=== PATIENT | female | born 1975 | race Caucasian/White ===

== ENCOUNTER 2021-06-18 06:10 | Inpatient (IN) | payer OTHER, SELFPAY ==
[~2021-06-18] VITALS: Ht 152.4 cm; Wt 89.8 kg
[2021-06-18] MEDS ORDERED: PROPOFOL 200 MG/20 ML VIAL IV ONE (08:27)
[2021-06-18] MEDS ORDERED: HYDROmorphone PFS 2 MG/ML SYR ONE (08:27)
[2021-06-18] MEDS ORDERED: MIDAZOLAM 2 MG/2 ML VIAL ONE (08:27)
[2021-06-18] MEDS ORDERED: ROCURONIUM 50 MG/5 ML VIAL IV ONE ×2 (08:28→10:51)
[2021-06-18] MEDS ORDERED: LABETALOL 100 MG/20 ML VIAL ONE (08:33)
[2021-06-18 09:47] LABS: APPEARANCE,URINE CLEAR (CLEAR); BILIRUBIN,URINE NEGATIVE (NEGATIVE); BLOOD, URINE NEGATIVE (NEGATIVE); COLOR,URINE YELLOW (YELLOW); LEUKOCYTE ESTERASE ,URINE NEGATIVE (NEGATIVE); NITRITE, URINE NEGATIVE (NEGATIVE); UGLUCOSE NEGATIVE (NEGATIVE)
--- NOTE | 2021-06-18 10:37 | NUR ---
PATIENT HAS BEEN SCREENED AND CATEGORIZED LOW NUTRITION RISK. PATIENT WILL BE SEEN WITHIN 7 DAYS OF ADMISSION. 06/24/[address]
[2021-06-18] MEDS ORDERED: KETOROLAC 30 MG/ML VIAL IVP PRN (10:40)
[2021-06-18] MEDS ORDERED: ACETAMINOPHEN 325 MG TAB PO PRN (10:40)
[2021-06-18] MEDS ORDERED: ONDANSETRON 4 MG/2 ML VIAL IVP PRN ×2 (10:40→12:15)
[2021-06-18] MEDS ORDERED: diphenhydrAMINE 50 MG/ML VIAL IVP PRN (10:40)
[2021-06-18] MEDS ORDERED: diphenhydrAMINE 50 MG/ML VIAL ONE (10:50)
[2021-06-18] MEDS ORDERED: GLYCOPYRROLATE 0.2 MG/ML VIAL ONE ×2 (10:50)
[2021-06-18] MEDS ORDERED: NEOSTIGMINE 1:1000 10 MG/10 ML VIAL ONE (10:50)
[2021-06-18] MEDS ORDERED: KETOROLAC 30 MG/ML VIAL ONE (10:50)
[2021-06-18] MEDS ORDERED: METOCLOPRAMIDE 10 MG/2 ML INJ VIAL ONE (10:50)
[2021-06-18] MEDS ORDERED: ALBUTEROL HFA MDI 90 MCG/ACTUATION 8 GM INH ONE (10:50)
[2021-06-18] MEDS ORDERED: ONDANSETRON 4 MG/2 ML VIAL ONE (10:50)
[2021-06-18] MEDS ORDERED: DEXAMETHASONE 4 MG/ML VIAL ONE ×2 (10:51)
[2021-06-18] MEDS ORDERED: ePHEDrine 50 MG/ML VIAL ONE (10:51)
[2021-06-18] MEDS ORDERED: HYDROmorphone 1 MG/ML AMP IVP PRN (12:15)
[2021-06-18] MEDS ORDERED: MEPERIDINE 25 MG/ML SYR IVP PRN (12:15)
[2021-06-18 13:20] VITALS: BP 101/75
[2021-06-18 16:00] VITALS: BP 123/74
[2021-06-18] MEDS: LACTATED RINGERS 1,000 ML IV SCH (18:44)
--- NOTE | 2021-06-18 19:55 | NUR ---
RECEIVED REPORT FROM MORNING SHIFT RN. PATIENT RESTING COMFORTABLY ON BED, DROWSY BUT AROUSABLE. IV FLUIDS ONGOING AT DESIRED RATE. WOUND CDI. VS STABLE. ON CONTINUOS PULSE OXIMETRY WITH O2SAT OF 91%, ON 02 OF 2L/NC.WILL CONTINUE TO MONITOR PATIENT.
[2021-06-18 20:00] VITALS: BP 128/74
[2021-06-19] VITALS: BP 102/66
[2021-06-19] MEDS: oxyCODONE/APAP 5/325 MG 1 TAB TAB PO PRN (01:04)
[2021-06-19] MEDS: LACTATED RINGERS 1,000 ML IV SCH ×3 (03:11→16:17)
[2021-06-19 04:00] VITALS: BP 123/62
--- NOTE | 2021-06-19 06:58 | NUR ---
WARREN CATHETER REMOVED ORDERED. PATIENT TOLERATED WELL. WILL ENDORSE TO MORNING SHIFT RN.
[2021-06-19 07:20] LABS: BASOPHILS % (AUTO) 0.1 % (0.0-2.0); HEMATOCRIT 33.9 % (36-48); HEMOGLOBIN 11.1 g/dL (12.0-16.0); LYMPHOCYTES # (AUTO) 1.4 K/uL (2.5-16.5); LYMPHOCYTES % (AUTO) 13.6 % (20.5-51.1); MEAN CORPUSCULAR HEMOGLOBIN 25 pg (27-31); MEAN CORPUSCULAR HGB CONC 33 g/dL (33-37); MEAN CORPUSCULAR VOLUME 75.2 fL (80-94); MONOCYTES # (AUTO) 0.6 K/uL (0.8-1.0); MONOCYTES % (AUTO) 5.5 % (1.7-9.3); NEUTROPHILS # (AUTO) 8.3 K/uL (1.8-7.7); NEUTROPHILS % (AUTO) 80.8 % (42.2-75.2); PLATELET COUNT (AUTO) 335 K/uL (140-450); RED BLOOD CELL COUNT(AUTO) 4.51 MIL/uL (4.20-5.40); RED CELL DISTRIBUTION WIDTH 16.4 % (11.6-13.7); WHITE BLOOD COUNT (AUTO) 10.3 K/uL (4.8-10.8)
--- NOTE | 2021-06-19 07:40 | NUR ---
RECEIVED BEDSIDE REPORT FROM MAINTENANCE MGR NURSE FOR CONTINUITY OF CARE. PT BREATHING IS EVEN AND UNLABORED. NO SIGNS OF DISTRESS NOTED.PT IV IS INTACT. ON 2L NC. PT IS STABLE.
[2021-06-19 08:00] VITALS: BP 118/72
--- NOTE | 2021-06-19 12:00 | NUR ---
PT BREATHING IS EVEN AND UNLABORED. NO SIGNS OF DISTRESS NOTED.PT IV IS INTACT. PT NOW ON 1L OF 02 NC.PT IS STABLE.
[2021-06-19 16:00] VITALS: BP 120/62
--- NOTE | 2021-06-19 19:50 | NUR ---
ENDORSED PT TO LUMBER CHAIN OFFBEARER NURSE FOR CONTINUITY OF CARE.
[2021-06-19 20:00] VITALS: BP 131/79
--- NOTE | 2021-06-19 22:29 | NUR ---
PATIENT DAUGHTER HEIDI CALLED EARLIER BUT I WAS BUSY WITH ANOTHER PATIENT. I ASKED THE MT JESUS TO TAKE THE MESSAGE AND TAKE THE PATIENTS DAUGHTER PHONE NUMBER SO I CAN CALL HER BACK. CALLED THE PATIENT DAUGHTER HEIDI BUT NO ANSWER. LEFT HER A MESSAGE AND PROVIDED HER OUR PHONE NUMBER TO CALL ME BACK.
[2021-06-20] MEDS: LACTATED RINGERS 1,000 ML IV SCH (00:12)
[2021-06-20] MEDS: oxyCODONE/APAP 5/325 MG 1 TAB TAB PO PRN (03:40)
[2021-06-20 04:00] VITALS: BP 104/62
[2021-06-20 08:00] VITALS: BP 118/83
--- NOTE | 2021-06-20 08:00 | NUR ---
RECEIVED PT FROM NIGHTSHIFT. PT A/O X4. NO SOB OR RESPIRATORY DISTRESS. RR EVEN & UNLABORED. LOWER ABDOMEN SURGICAL SITE WITH NO S/S OF INFECTION. ASSISTED PT TO AND FROM RESTROOM. OBSERVED WITH STEADY GAIT. NEEDS ALL MET AT THIS TIME. SAFE PRECAUTIONS IN PLACE. WILL MONITOR CLOSELY.
[2021-06-20 08:30] VITALS: BP 131/79
[2021-06-20 11:55] VITALS: BP 118/63
--- NOTE | 2021-06-20 12:00 | NUR ---
SPOKE WITH MD REGARDING DISCHARGE. PT IN NO DISTRESS. NO SOB OR RESPIRATORY DISTRESS. RR EVEN & UNLABORED. NEEDS ALL MET. WILL MONITOR CLOSELY. NET APPLICATIONS DEVELOPER, JACQUELINE WILL DISCHARGE PT.
== END 2021-06-20 12:40 | disposition home or self-care (01) | DRG 513 ==
LOC: MMU 06:10 → MTU 13:44
PROVIDERS: ADMIT Obstetrics & Gynecology; ATTEND Obstetrics & Gynecology
PROC: 0UB70ZZ Excision of Bilateral Fallopian Tubes, Open Approach (ICD-10-PCS; 2021-06-18)
PROC: 0UB20ZZ Excision of Bilateral Ovaries, Open Approach (ICD-10-PCS; 2021-06-18)
PROC: 0UT90ZZ Resection of Uterus, Open Approach (ICD-10-PCS; principal; 2021-06-18 07:30)
DX: N93.9 Abnormal uterine and vaginal bleeding, unspecified (principal); D62 Acute posthemorrhagic anemia; N92.0 Excessive and frequent menstruation with regular cycle; D25.9 Leiomyoma of uterus, unspecified; G89.29 Other chronic pain; J45.909 Unspecified asthma, uncomplicated; Z20.822 Contact with and (suspected) exposure to COVID-19; Z98.891 History of uterine scar from previous surgery; Z90.49 Acquired absence of other specified parts of digestive tract
CPT/HCPCS: 36415; 81003; 85025; 86886; 86900; 86901; 87081; 88307; 93005; J0690; J1100; J1170; J1200; J1885; J2250; J2405; J2704; J2710; J2765; J3490; J3535; J7060; J7120

== ENCOUNTER 2021-08-16 10:11 | Inpatient (IN) | payer OTHER ==
[~2021-08-16] VITALS: Ht 152.4 cm; Wt 89.4 kg
[2021-08-16 10:16] VITALS: BP 133/91
--- NOTE | 2021-08-16 10:20 | NUR ---
PATIENT AMBULATED TO BED 9, STEADY GAIT
[2021-08-16 11:15] LABS: BASOPHILS % (AUTO) 0.6 % (0.0-2.0); EOSINOPHILS # (AUTO) 0.2 K/uL (0-0.4); EOSINOPHILS % (AUTO) 2.7 % (0.0-4.0); HEMATOCRIT 38.8 % (36-48); HEMOGLOBIN 12.7 g/dL (12.0-16.0); LYMPHOCYTES # (AUTO) 2.8 K/uL (2.5-16.5); MEAN CORPUSCULAR HEMOGLOBIN 25 pg (27-31); MEAN CORPUSCULAR HGB CONC 33 g/dL (33-37); MEAN CORPUSCULAR VOLUME 74.9 fL (80-94); MONOCYTES # (AUTO) 0.4 K/uL (0.8-1.0); MONOCYTES % (AUTO) 5.1 % (1.7-9.3); NEUTROPHILS # (AUTO) 3.6 K/uL (1.8-7.7); NEUTROPHILS % (AUTO) 51.6 % (42.2-75.2); PLATELET COUNT (AUTO) 311 K/uL (140-450); RED BLOOD CELL COUNT(AUTO) 5.18 MIL/uL (4.20-5.40); RED CELL DISTRIBUTION WIDTH 17.1 % (11.6-13.7)
[2021-08-16 11:48] LABS: ALBUMIN 3.7 g/dL (3.4-5.0); ANION GAP 10.1 (8-16); CARBON DIOXIDE 26.2 mmol/L (21-32); CREATININE 0.9 mg/dL (0.6-1.3); POTASSIUM 4.3 mmol/L (3.5-5.1); TOTAL BILIRUBIN 0.2 mg/dL (0.0-1.0)
--- NOTE | 2021-08-16 12:26 | NUR ---
idalia swab sent to lab given to Lori
[2021-08-16] MEDS ORDERED: ONDANSETRON 4 MG/2 ML VIAL IVP PRN (13:00)
[2021-08-16] MEDS ORDERED: MORPHINE SULFATE 2 MG/ML SYR IVP PRN (13:00)
[2021-08-16] MEDS ORDERED: ACETAMINOPHEN 325 MG TAB PO PRN (13:00)
[2021-08-16] MEDS ORDERED: MORPHINE SULFATE 4 MG/ML SYR IVP PRN (13:00)
[2021-08-16] MEDS ORDERED: HYDROcodone/APAP 5/325 MG 1 TAB TAB PO PRN (13:00)
[2021-08-16 13:05] LABS: APPEARANCE,URINE CLEAR (CLEAR); BILIRUBIN,URINE NEGATIVE (NEGATIVE); BLOOD, URINE NEGATIVE (NEGATIVE); COLOR,URINE YELLOW (YELLOW); LEUKOCYTE ESTERASE ,URINE NEGATIVE (NEGATIVE); NITRITE, URINE NEGATIVE (NEGATIVE); UGLUCOSE NEGATIVE (NEGATIVE)
--- NOTE | 2021-08-16 13:17 | NUR ---
unable to get a bed for pt s/p charge nurse no mst/tele not answering her phone
--- NOTE | 2021-08-16 13:20 | NUR ---
called boarding house cook Raúl for bed assignment, charge nurse no mst/tele not answering her phone.
--- NOTE | 2021-08-16 13:25 | NUR ---
unable to get a bed for pt s/p charge nurse no mst/tele not answering her phone
[2021-08-16] MEDS: NACL 0.9% 1,000 ML IV SCH (13:58)
[2021-08-16 15:20] VITALS: BP 123/79
--- NOTE | 2021-08-16 15:20 | NUR ---
RN FROM ER WHEEL PATIENT ON HER ROOM VIA [employer]. PATIENT ALERT ORIENTED NO DISCOMFORT NOTED. RECEIVED BED SIDE REPORT FROM HAILY. IV SITE ON HER RIGHT WRIST. ORIENTED TO ROOM, CALL LIGHT BATH ROOM, TV. CALL LIGHT WITH IN EASY REACH.
--- NOTE | 2021-08-16 15:56 | NUR ---
REPORT GIVEN TO WILLIAM AT BEDSIDE BED 126B
--- NOTE | 2021-08-16 17:30 | NUR ---
PATIENT ON BED RESTING WITH IV AT 75 CC/HOUR NO FLUID OVERLOAD IV SITE INTACT NO S/S OF INFECTION.
--- NOTE | 2021-08-16 18:19 | NUR ---
PATIENT IS ASKING IF SHE CAN EAT AT THIS TIME. PATIENT CURRENT DIET IS NPO.
[2021-08-16] MEDS ORDERED: GENTAMICIN PER PHARMACY MC PRN (18:45)
--- NOTE | 2021-08-16 19:41 | NUR ---
GAVE REPORT TO ATTIC BLOWER NURSE FOR CONTINUITY OF CARE. PATIENT ALERT AND ORIENTED. IV STILL RUNNING AT 75 CC/HOURS CALL LIGHT WITH IN EASY REACH.
[2021-08-16] MEDS: AMPICILLIN 2,000 MG in NACL 0.9% 100 ML IV SCH (19:58)
--- NOTE | 2021-08-16 20:00 | NUR ---
REPORT RECEIVED FROM NEGRITO RN. PT AWAKE IN BED. DENIES PAIN. VITALS STABLE. EATING DINNER. WILL CONTINUE TO MONITOR.
[2021-08-16] MEDS: CLINDAMYCIN 900 MG in DEXTROSE 5% 50 ML IV SCH (21:58)
[2021-08-16 22:16] VITALS: BP 127/72
[2021-08-16] MEDS: GENTAMICIN 70 MG in DEXTROSE 5% 100 ML IV SCH (23:09)
--- NOTE | 2021-08-17 00:04 | NUR ---
PT SLEEPING. INTERMITTENTLY WAKES UP UPON RN ARRIVAL TO ROOM IV ANTIBIOTICS ARE ADMINISTERED. PT TOLERATING ANTIBIOTICS - NO REACTIONS. PT DENIES PAIN. WILL CONTINUE TO MONITOR.
[2021-08-17] MEDS: AMPICILLIN 2,000 MG in NACL 0.9% 100 ML IV SCH ×4 (00:54→17:03)
[2021-08-17] MEDS: NACL 0.9% 1,000 ML IV SCH ×2 (02:20→14:44)
[2021-08-17] MEDS: CLINDAMYCIN 900 MG in DEXTROSE 5% 50 ML IV SCH ×3 (04:00→21:00)
--- NOTE | 2021-08-17 04:39 | NUR ---
PT SLEEPING. IV ANTIBIOTIC INFUSING. PT TOLERATING WELL. NO REACTION. VITALS REMAIN STABLE. NO COMPLAINTS OF PAIN. WILL CONTINUE TO MONITOR.
[2021-08-17 05:16] VITALS: BP 108/67
[2021-08-17] MEDS: GENTAMICIN 70 MG in DEXTROSE 5% 100 ML IV SCH ×2 (06:15→14:36)
[2021-08-17 06:37] LABS: BASOPHILS % (AUTO) 0.4 % (0.0-2.0); EOSINOPHILS # (AUTO) 0.2 K/uL (0-0.4); HEMATOCRIT 36.5 % (36-48); HEMOGLOBIN 11.9 g/dL (12.0-16.0); LYMPHOCYTES # (AUTO) 2.6 K/uL (2.5-16.5); LYMPHOCYTES % (AUTO) 36.2 % (20.5-51.1); MEAN CORPUSCULAR HEMOGLOBIN 25 pg (27-31); MEAN CORPUSCULAR HGB CONC 32 g/dL (33-37); MEAN CORPUSCULAR VOLUME 75.4 fL (80-94); MONOCYTES # (AUTO) 0.4 K/uL (0.8-1.0); MONOCYTES % (AUTO) 5.9 % (1.7-9.3); NEUTROPHILS # (AUTO) 3.9 K/uL (1.8-7.7); NEUTROPHILS % (AUTO) 54.5 % (42.2-75.2); PLATELET COUNT (AUTO) 310 K/uL (140-450); RED BLOOD CELL COUNT(AUTO) 4.85 MIL/uL (4.20-5.40); WHITE BLOOD COUNT (AUTO) 7.1 K/uL (4.8-10.8)
--- NOTE | 2021-08-17 06:38 | NUR ---
WILL ENDORSE CARE TO DAYSHIFT RN. PT SLEEPING, EASILY AROUSED UPON ENTERING ROOM . NO DISTRESS. NO RXN TO ANTIBIOTICS. WILL CONTINUE TO MONITOR THIS SHIFT.
[2021-08-17 07:03] LABS: ALBUMIN 3.1 g/dL (3.4-5.0); ANION GAP 11.7 (8-16); CARBON DIOXIDE 25.3 mmol/L (21-32); CREATININE 0.9 mg/dL (0.6-1.3); TOTAL BILIRUBIN 0.3 mg/dL (0.0-1.0)
[2021-08-17 07:39] VITALS: BP 90/54
--- NOTE | 2021-08-17 07:42 | NUR ---
RECEIVED REPORT FROM JOSE DOLAN. PT A/O X4. ABLE TO MAKE NEEDS KNOWN. NO SOB OR RESPIRATORY DISTRESS. ON RA. RR EVEN & UNLABORED. STATES HYSTERECTOMY 06/2021. DENIES PAIN. NS @ 75 ON R WRIST #22 WITH DRESSING C/D/I. NEEDS ALL MET AT THIS TIME. SAFETY PRECAUTIONS IN PLACE. WILL CONTINUE TO MONITOR CLOSELY.
--- NOTE | 2021-08-17 08:54 | NUR ---
PATIENT HAS BEEN SCREENED AND CATEGORIZED MODERATE NUTRITION RISK. PATIENT WILL BE SEEN WITHIN 3-5 DAYS OF ADMISSION. [address]
--- NOTE | 2021-08-17 11:49 | NUR ---
ANTIBIOTICS INFUSING. NO ADVERSE REACTION. PT SLEEPING. HOB ELEVATED. NO SOB OR RESPIRATORY DISTRESS. ON RA. HOURLY ROUNDS CONDUCTED. SAFETY MEASURES IN PLACE.
--- NOTE | 2021-08-17 12:37 | NUR ---
DC PLANN[age] YRS OLD FEMALE PATIENT WAS ADMITTED FROM HOME WITH A DX OF ABDOMINAL PAIN , PELVIC FLUID COLLECTION. PATIENT HAS A HX OF ASTHMA, PNA, UTERINE FIBROIDS S/P TOTAL HYSTERECTOMY ON 07/16/21. CT ABD/PELVIS SHOWED FLUID COLLECTION IN ABD WALL. ADMINISTERED IVF, IV ABX GENTAMICIN, CLINDAMYCIN AND AMPICILLIN. CONSULTED WITH DARREN HER. DC PLAN TO GO HOME WHEN STABLE. CM TO FOLLOW Addendum: 08/18/21 at 1404 by Karla Tellez RN DC PLANNING: SPOKE WITH PATIENT STATED DR HER VISITED HER LAST NIGHT AND INFORMED HER THAT AWAITING FOR ABX TO BE INFUSED AT LEAST 72 HRS AND NEEDS TO ORDER CT ABD, IF CT SHOWS FLUID COLLECTION WILL PERFORM SURGERY. CALLED DR HER AND CLARIFIED THE PLAN, MD STATED WILL COME TO SEE HER TONIGHT TO ASSESS. CM TO FOLLOW.
--- NOTE | 2021-08-17 13:00 | NUR ---
PT C/O LUNCH AT BEDSIDE. CONTACTED DIETARY TO SEND NEW TRAY. NEW TRAY AT BEDSIDE. 75% OF LUNCH COMPLETED. NEEDS ALL MET AT THIS TIME. SAFETY MEASURES IN PLACE. WILL CONTINUE TO MONITOR CLOSELY.
--- NOTE | 2021-08-17 14:53 | NUR ---
PT REFUSES PAIN MEDICATION. ENCOURAGE PRN PAIN MED. SEE EMAR.
[2021-08-17 16:00] VITALS: BP 108/65
--- NOTE | 2021-08-17 16:10 | NUR ---
PLHEBOTOMIST STATES PT REFUSED BLOOD DRAW. EXPLAINED PURPOSE OF BLOOD DRAW. PT EDUCATION ON PEAK AND TROUGH OF GENTAMYCIN AND POSSIBLE SIDE EFFECTS/TOXICITY. PT VERBALIZE UNDERSTANDING AND AGREES WITH BLOOD DRAW. BLOOD DRAWN BY SPECIAL LIBRARIAN. ALL QUESTIONS ANSWERED. ALL NEEDS MET. SAFETY MEASURES IN PLACE. WILL MONITOR CLOSELY.
--- NOTE | 2021-08-17 19:08 | NUR ---
REPORT GIVEN TO NIGHTSVTFT JOSE DAWKINS FOR CONTINUITY OF CARE.
--- NOTE | 2021-08-17 19:15 | NUR ---
RECEIVED PT FROM AM NURSE FOR CONTINUITY OF CARE. PT IS STABLE
--- NOTE | 2021-08-17 21:30 | NUR ---
AL MEDS GIVEN AT THIS TIME,NO ADVERSE REACTIONS NOTED, NO DISTRESS NOTED
[2021-08-17] MEDS: GENTAMICIN 100 MG in DEXTROSE 5% 100 ML IV SCH (23:09)
[2021-08-18] VITALS: BP 106/68
--- NOTE | 2021-08-18 | NUR ---
PATIENT IS SLEEPING COMFORTABLY IN BED,RESPIRATIONS EVEN AND UNLABORED,NO ADVERSE REACTIONS FROM ANTIBIOTICS NOTED
[2021-08-18] MEDS: AMPICILLIN 2,000 MG in NACL 0.9% 100 ML IV SCH ×4 (00:12→18:00)
--- NOTE | 2021-08-18 03:00 | NUR ---
PATIENT SLEEPING AT THIS TIME, RESPIRATION EVEN AND UNLABORED,NO DISTRESS NOTED
[2021-08-18] MEDS: NACL 0.9% 1,000 ML IV SCH ×2 (05:00→18:00)
[2021-08-18] MEDS: CLINDAMYCIN 900 MG in DEXTROSE 5% 50 ML IV SCH ×3 (05:02→22:09)
--- NOTE | 2021-08-18 06:00 | NUR ---
PATIENT ASLEEP,BREATHING EVEN AND UNLABORED,NO DISTRESS NOTE.
[2021-08-18] MEDS: GENTAMICIN 100 MG in DEXTROSE 5% 100 ML IV SCH ×3 (07:00→23:16)
--- NOTE | 2021-08-18 07:30 | NUR ---
RECEIVED REPORT FROM NIGHTSHIFT RN . PT A/O X4. ABLE TO MAKE NEEDS KNOWN. NO C/O PAIN. NO SOB OR RESPIRATORY DISTRESS. ON RA. RR EVEN & UNLABORED. STATES HYSTERECTOMY 06/2021. NS @ 75 ON R WRIST #22 WITH DRESSING C/D/I. NEEDS ALL MET AT THIS TIME. SAFETY PRECAUTIONS IN PLACE. WILL CONTINUE TO MONITOR CLOSELY.
--- NOTE | 2021-08-18 07:35 | NUR ---
ENDORSED PT TO AM NURSE FOR CONTINUITY OF CARE. PT IS STABLE
[2021-08-18 08:00] VITALS: BP 112/70
--- NOTE | 2021-08-18 09:00 | NUR ---
DUE MEDS GIVEN
[2021-08-18 09:07] LABS: ANION GAP 13.7 (8-16); CARBON DIOXIDE 24.5 mmol/L (21-32); CREATININE 0.9 mg/dL (0.6-1.3); POTASSIUM 4.2 mmol/L (3.5-5.1)
[2021-08-18 09:31] LABS: BASOPHILS % (AUTO) 0.7 % (0.0-2.0); EOSINOPHILS # (AUTO) 0.2 K/uL (0-0.4); EOSINOPHILS % (AUTO) 3.9 % (0.0-4.0); HEMATOCRIT 36.7 % (36-48); HEMOGLOBIN 11.9 g/dL (12.0-16.0); LYMPHOCYTES # (AUTO) 2.3 K/uL (2.5-16.5); LYMPHOCYTES % (AUTO) 41.8 % (20.5-51.1); MEAN CORPUSCULAR HEMOGLOBIN 25 pg (27-31); MEAN CORPUSCULAR HGB CONC 33 g/dL (33-37); MEAN CORPUSCULAR VOLUME 75.6 fL (80-94); MONOCYTES # (AUTO) 0.4 K/uL (0.8-1.0); MONOCYTES % (AUTO) 6.7 % (1.7-9.3); NEUTROPHILS # (AUTO) 2.6 K/uL (1.8-7.7); NEUTROPHILS % (AUTO) 46.9 % (42.2-75.2); PLATELET COUNT (AUTO) 306 K/uL (140-450); RED BLOOD CELL COUNT(AUTO) 4.85 MIL/uL (4.20-5.40); WHITE BLOOD COUNT (AUTO) 5.6 K/uL (4.8-10.8)
--- NOTE | 2021-08-18 11:00 | NUR ---
REPORT GIVEN TO KATHARINE PERSON
--- NOTE | 2021-08-18 11:13 | NUR ---
SCHEDULED MEDICATIONS DUE GIVEN. WILL CONTINUE TO MONITOR.
--- NOTE | 2021-08-18 11:30 | NUR ---
ASSUMED CARE OVER PT. RECEIVED REPORT FROM JOSE GILBERT. WILL CONTINUE TO MONITOR.
--- NOTE | 2021-08-18 12:29 | NUR ---
IV ANTIBIOTICS ADMINISTERED BY JOSE ABREU. WILL CONTINUE TO MONITOR.
--- NOTE | 2021-08-18 14:27 | NUR ---
DC PLANNING PATIENT IS A 45 YR OLD FEMALE WHO PRESENTED TO [facility]/ED ON 08/16/21 FOR CHRONIC LOWER ABDOMINAL PAIN SW MET WITH CLIENT AT BEDSIDE FOR THE PURPOSE OF DISCUSSING AND GATHERING COLLATERAL INFORMATION. PATIENT REPORTED LIVING WITH HER AND CHILDREN. PATIENT REPORTS EMERGENCY CONTACT AND MEDICAL DECISION MAKER JOSE CARDENAS () [phone]. SW INQUIRED ON A.D, PATIENT DENIED CURRENTLY HAVING ONE IN PLACE AT THIS TIME. SW PROVIDED PATIENT WITH INFORMATION AND EDUCATION ON A.D AND OFFERED TO PROVIDE PATIENT WITH A.D PACKET; PATIENT WAS RECEPTIVE AND ACCEPTED A.D PACKET. SW ENCOURAGED PATIENT TO SPEAK ABOUT IT WITH FAMILY AND TO MAKE DECISION WHEN APPROPRIATE. PATIENT REPORTS ONCE MEDICALLY DISCHARGED WILL BE PROVIDING TRANSPORTATION AND AIDING IN HER CARE. PATIENT REPORTS ADEQUATE FRIEND AND FAMILY SUPPORT. PATIENT REPORTS MEETING WITH HER PCP REGULARLY (DR. RAJESH VEGA), LAST VISIT IN [place]. SW SPOKE WITH PATIENT ON THE IMPORTANCE OF FOLLOW UP CARE, PATIENT WAS RECEPTIVE AND PROVIDED SW WITH PERMISSION TO SCHEDULE FOLLOW UP APPT WITH DR. VEGA. PATIENT DENIED BARRIERS IN ACCESSING MEDICATIONS AND REPORTS PICKING UP MEDICATION AT THE [facility] IN [place], WHEN NEEDED. PRIOR TO THIS VISIT, PATIENT REPORTS BEING INDEPENDENT/AMBULATORY. PATIENT REQUESTED WALKER UPON DISCHARGE, SW ADVISED PATIENT TO SPEAK WITH . PATIENT WAS UNDERSTANDING AND REPORTED THAT SHE WOULD DO SO. SW INQUIRED ON ANY ADDITIONAL RESOURCES NEEDED, PATIENT DECLINED.
--- NOTE | 2021-08-18 14:32 | NUR ---
SCHEDULED MEDICATIONS DUE GIVEN. WILL CONTINUE TO MONITOR.
[2021-08-18 16:00] VITALS: BP 116/82
--- NOTE | 2021-08-18 16:15 | NUR ---
PT CALLED AND REQUESTED MENU FOR DINNER AND BREAKFAST. PT STATES SHE DISLIKES THE FOOD HERE AT THE HOSPITAL. I CALLED [facility] AND ASKED FOR A MENU FOR THE PT. I WAS TOLD THEY WOULD BRING IT OVER. INFORMED PT. WILL CONTINUE TO MONITOR.
--- NOTE | 2021-08-18 19:09 | NUR ---
IV MEDICATION ADMINISTERED BY JOSE ABREU. WILL CONTINUE TO MONITOR.
--- NOTE | 2021-08-18 19:38 | NUR ---
ENDORSED PT TO MORPHOLOGIST NURSE FOR CONTINUITY OF CARE. ALL NEEDS MET THROUGHOUT SHIFT. PT IS STABLE.
--- NOTE | 2021-08-18 20:30 | NUR ---
PREG . TEST (-) - WILL SEND TO RAD . DEPT - FOR CT ABD/ PELVIS . NO COMPLAIN MADE AT THIS TIME .
[2021-08-19] VITALS (8 sets, daily range): BP systolic 107–128; BP diastolic 59–85
--- NOTE | 2021-08-19 | NUR ---
ROUNDS , NO COMPLAIN MADEN .
[2021-08-19] MEDS: AMPICILLIN 2,000 MG in NACL 0.9% 100 ML IV SCH ×4 (00:38→19:45)
--- NOTE | 2021-08-19 04:00 | NUR ---
ROUNDS , NO COMPLAIN MADE
[2021-08-19] MEDS: CLINDAMYCIN 900 MG in DEXTROSE 5% 50 ML IV SCH (05:00)
--- NOTE | 2021-08-19 07:00 | NUR ---
CLARIFYING TO LAB - THERE IS GENTAMICIN TROUGH AT 6AM , GENTAMICIN PEAK AT 0730 - PER LAB GIVE THE GENTA. SCHEDULED AT 7AM TODAY - WILL ENDORSE .
[2021-08-19] MEDS: GENTAMICIN 100 MG in DEXTROSE 5% 100 ML IV SCH ×3 (07:18→23:17)
[2021-08-19 07:23] LABS: BASOPHILS # (AUTO) 0.1 K/uL (0.00-0.22); BASOPHILS % (AUTO) 0.8 % (0.0-2.0); EOSINOPHILS # (AUTO) 0.2 K/uL (0-0.4); EOSINOPHILS % (AUTO) 3.6 % (0.0-4.0); HEMATOCRIT 35.9 % (36-48); HEMOGLOBIN 11.8 g/dL (12.0-16.0); LYMPHOCYTES # (AUTO) 2.7 K/uL (2.5-16.5); LYMPHOCYTES % (AUTO) 40.3 % (20.5-51.1); MEAN CORPUSCULAR HEMOGLOBIN 25 pg (27-31); MEAN CORPUSCULAR HGB CONC 33 g/dL (33-37); MEAN CORPUSCULAR VOLUME 74.8 fL (80-94); MONOCYTES # (AUTO) 0.4 K/uL (0.8-1.0); MONOCYTES % (AUTO) 5.6 % (1.7-9.3); NEUTROPHILS # (AUTO) 3.3 K/uL (1.8-7.7); NEUTROPHILS % (AUTO) 49.7 % (42.2-75.2); PLATELET COUNT (AUTO) 312 K/uL (140-450); WHITE BLOOD COUNT (AUTO) 6.7 K/uL (4.8-10.8)
[2021-08-19 07:30] LABS: CARBON DIOXIDE 24.5 mmol/L (21-32); POTASSIUM 4.5 mmol/L (3.5-5.1)
--- NOTE | 2021-08-19 08:00 | NUR ---
ENDORSED - PT - STABLE . I TOLD TO JOSE SHANE - PT MADE LIST OF BREAKFAST - I WILL GIVE THE LIST TO THE KITCHEN - I TOLD TO ACOSTA SHE HAVE TO FF UP ABOUT IT - JOSE SHANE VERBALIZES UNDERSTANDING . Addendum: 08/19/21 at 0832 by Nella Andrew RN I GAVE THE LIST OF BREAKFAST THAT PT . REQUESTED .
--- NOTE | 2021-08-19 08:18 | NUR ---
RECEIVED ENDORSEMENT FROM PM SHIFT NURSE FOR PRE-OPERATION PATIENT. SALINE LOCK LAC 18G INTACT. LAPAROSCOPE APPENDECTOMY PROCEDURE SCHEDULE SET FOR THIS MORNING. PT NPO, PROCEDURE CONSENT SIGNED. WILL CONTINUE TO MONITOR. Addendum: 08/19/21 at 0824 by Sierra Butt RN DISREGARD THE NOTE
[2021-08-19] MEDS: NACL 0.9% 1,000 ML IV SCH ×2 (09:20→22:15)
[2021-08-19] MEDS: CLINDAMYCIN 900 MG in DEXTROSE 5% 100 ML IV SCH ×2 (13:00→22:15)
--- NOTE | 2021-08-19 15:37 | NUR ---
OR COM TO UNIT AND BODY AND FRAME MAN PATIENT TO PROCEDURE. WILL F/U
[2021-08-19] MEDS ORDERED: PANTOPRAZOLE 40 MG INJ VIAL IVP SCH (18:06)
[2021-08-19] MEDS ORDERED: fentaNYL citrate 0.05 MG/ML VIAL ONE ×2 (18:41→19:54)
[2021-08-19] MEDS ORDERED: MIDAZOLAM 2 MG/2 ML VIAL ONE (18:41)
[2021-08-19] MEDS ORDERED: PROPOFOL 200 MG/20 ML VIAL IV ONE (18:54)
[2021-08-19] MEDS ORDERED: SEVOFLURANE 250 ML BTL INH ONE (19:00)
[2021-08-19] MEDS ORDERED: METOCLOPRAMIDE 10 MG/2 ML INJ VIAL ONE (19:31)
[2021-08-19] MEDS ORDERED: ONDANSETRON 4 MG/2 ML VIAL ONE (19:31)
[2021-08-19] MEDS ORDERED: DEXAMETHASONE 4 MG/ML VIAL ONE (19:31)
[2021-08-19] MEDS ORDERED: SUCCINYLCHOLINE CHLORIDE 200 MG/10 ML VIAL IVP ONE (19:32)
[2021-08-19] MEDS ORDERED: ePHEDrine 50 MG/ML VIAL ONE (19:32)
[2021-08-19] MEDS ORDERED: AMPICILLIN/SULBACTAM 3 GM VIAL ONE (19:35)
--- NOTE | 2021-08-19 19:49 | NUR ---
ENDORSE PT TO PM SHIFT NURSE WHILE ANT STILL IN OR FOR DRAINAGE PROCEDURE.
[2021-08-19] MEDS ORDERED: KETOROLAC 60 MG/2 ML VIAL IM ONE (20:54)
[2021-08-19] MEDS: KETOROLAC 30 MG/ML VIAL IVP SCH (21:00)
--- NOTE | 2021-08-19 21:50 | NUR ---
RETURN FROM OR: PATIENT AWAKE WITH CLEAN, DRY INTACT SURGICAL DRESSING TO ABDOMEN. NO HONG RN
[2021-08-20 00:10] VITALS: BP 109/60
[2021-08-20 00:40] VITALS: BP 95/55
--- NOTE | 2021-08-20 00:46 | NUR ---
PATIENT ABLE TO AMBULATE 25 YARDS, UP TO BATHROOM FOR VOID. REQUEST FOR PAIN MEDICATION FOR PAIN 9/10 BOTELLO TREJO SCALE TO INCISION SITE. GIVEN NEEDED PAIN MEDICATION. PATIENT COMPLAINT OF HUNGER AND NAUSEA HOWEVER CURRENT NPO ORDERS IN PLACE FROM PRE OP. NO HONG RN
[2021-08-20 01:40] VITALS: BP 96/56
[2021-08-20] MEDS: AMPICILLIN 2,000 MG in NACL 0.9% 100 ML IV SCH ×3 (02:36→12:00)
[2021-08-20 02:40] VITALS: BP 95/55
[2021-08-20] MEDS: KETOROLAC 30 MG/ML VIAL IVP SCH ×4 (03:00→12:00)
[2021-08-20 03:39] VITALS: BP 81/46
[2021-08-20] MEDS: CLINDAMYCIN 900 MG in DEXTROSE 5% 100 ML IV SCH ×2 (04:26→13:00)
[2021-08-20] MEDS: GENTAMICIN 100 MG in DEXTROSE 5% 100 ML IV SCH (06:59)
--- NOTE | 2021-08-20 07:06 | NUR ---
HANDOFF WITH JOSE DUQUE. NO HONG RN
--- NOTE | 2021-08-20 07:09 | NUR ---
LEFT MESSAGE WITH DOCTOR ARDEN REGARDING PATIENT POST OPERATIVE DIET ORDER. NO HONG RN
[2021-08-20 07:56] LABS: ANION GAP 15.8 (8-16); CARBON DIOXIDE 22.5 mmol/L (21-32); POTASSIUM 4.3 mmol/L (3.5-5.1)
--- NOTE | 2021-08-20 09:17 | NUR ---
INFORMED DR. HUBER THAT THE PT IS STILL NPO FOLLOWING PROCEDURE. PT ASKING FOR FOOD. RECEIVED ORDER FROM DR. HUBER TO ADVANCE DIET TO REGULAR DIET.
[2021-08-20] MEDS: NACL 0.9% 1,000 ML IV SCH (09:50)
[2021-08-20 10:59] LABS: BASOPHILS # (AUTO) 0.1 K/uL (0.00-0.22); BASOPHILS % (AUTO) 1.1 % (0.0-2.0); EOSINOPHILS # (AUTO) 0.3 K/uL (0-0.4); EOSINOPHILS % (AUTO) 3.7 % (0.0-4.0); LYMPHOCYTES # (AUTO) 2.6 K/uL (2.5-16.5); LYMPHOCYTES % (AUTO) 35.2 % (20.5-51.1); MEAN CORPUSCULAR HEMOGLOBIN 25 pg (27-31); MEAN CORPUSCULAR HGB CONC 33 g/dL (33-37); MEAN CORPUSCULAR VOLUME 77.7 fL (80-94); MONOCYTES # (AUTO) 0.4 K/uL (0.8-1.0); MONOCYTES % (AUTO) 5.1 % (1.7-9.3); NEUTROPHILS % (AUTO) 54.9 % (42.2-75.2); PLATELET COUNT (AUTO) 444 K/uL (140-450); RED CELL DISTRIBUTION WIDTH 17.4 % (11.6-13.7); WHITE BLOOD COUNT (AUTO) 7.3 K/uL (4.8-10.8)
--- NOTE | 2021-08-20 11:12 | NUR ---
TORADOL WAS NOT GIVEN BY RESIDENCE LIFE COORDINATOR NURSE. NEXT DOSE AT 1200 WILL BE GIVEN SCHEDULED.
[2021-08-20 11:21] LABS: HEMOGLOBIN 4.6 g/dL (12.0-16.0)
--- NOTE | 2021-08-20 11:41 | NUR ---
DUNIA GARCIA NOTIFIED DR. HUBER OF CRITICAL LAB HGB 4.[address] HUBER ORDERED A REDRAW OF THE CBC. ORDERS PLACED AND LAB CALLED, VP PLATFORMS TO REDRAW LABS STAT.
[2021-08-20 12:36] LABS: BASOPHILS % (AUTO) 0.1 % (0.0-2.0); HEMATOCRIT 36.9 % (36-48); LYMPHOCYTES # (AUTO) 1.2 K/uL (2.5-16.5); LYMPHOCYTES % (AUTO) 11.3 % (20.5-51.1); MEAN CORPUSCULAR HEMOGLOBIN 25 pg (27-31); MEAN CORPUSCULAR HGB CONC 33 g/dL (33-37); MEAN CORPUSCULAR VOLUME 75.4 fL (80-94); MONOCYTES # (AUTO) 0.5 K/uL (0.8-1.0); MONOCYTES % (AUTO) 4.6 % (1.7-9.3); NEUTROPHILS # (AUTO) 8.7 K/uL (1.8-7.7); PLATELET COUNT (AUTO) 342 K/uL (140-450); WHITE BLOOD COUNT (AUTO) 10.3 K/uL (4.8-10.8)
[2021-08-20 13:44] VITALS: BP 90/56
== END 2021-08-20 14:20 | disposition home or self-care (01) | DRG 792 ==
LOC: MED 10:11 → MMU 12:59
PROVIDERS: ADMIT Internal Medicine; ATTEND Internal Medicine
PROC: 0WBH0ZZ Excision of Retroperitoneum, Open Approach (ICD-10-PCS; principal; 2021-08-20)
DX: N99.842 Postprocedural seroma of a genitourinary system organ or structure following a genitourinary system procedure (principal); J45.909 Unspecified asthma, uncomplicated; Z20.822 Contact with and (suspected) exposure to COVID-19; Z90.49 Acquired absence of other specified parts of digestive tract; Z90.710 Acquired absence of both cervix and uterus; Z88.1 Allergy status to other antibiotic agents; Z88.0 Allergy status to penicillin; Z79.899 Other long term (current) drug therapy
CPT/HCPCS: 36415; 71045; 80048; 80053; 80170; 81003; 83690; 85025; 87081; 99285; C9113; J0290; J0295; J0330; J1100; J1580; J1885; J2250; J2270; J2405; J2704; J2765; J3010; J3490; J7060